=== PATIENT | female | born 1975 | race Caucasian/White ===

== ENCOUNTER 2019-04-29 21:19 | Inpatient (IN) ==
--- NOTE | 2019-04-29 22:06 | Diag Imaging Result Doc PS360 ---
EXAM: CHEST-2 VIEWS - 04/29/2019 HISTORY: cp TECHNIQUE: Chest two views COMPARISON: 12/20/2018 FINDINGS: Heart size is normal. There is some tortuosity of the thoracic aorta. Inspiration is mildly shallow. The lungs appear clear. There is no pleural effusion or pneumothorax identified. IMPRESSION: Some tortuosity of thoracic aorta. Mildly shallow inspiration. No other evidence of acute disease. Electronically signed by Jame Topete 04/29/2019 10:04 PM
[2019-04-29] MEDS ORDERED: DUONEB (A & A) INH ONE (22:10)
[2019-04-29] MEDS ORDERED: ZOFRAN ODT PO ONE (22:16)
[2019-04-29 22:23] LABS: BASO# 0.05 X1000 (0.0-0.2); BASO% 0.5 % (0.0-0.8); EOS# 0.31 X1000 (0.0-0.7); EOS% 2.9 % (0.0-10.0); HEMATOCRIT 43.5 % (37.0-47.0); HEMOGLOBIN 14.2 g/dL (12.0-16.0); IMM GRAN# 0.05 X1000 (0.0-0.04); IMM GRAN% 0.5 % (0.0-0.5); LYMPH# 2.47 X1000 (1.2-3.4); LYMPH% 23.2 % (20.5-51.1); MCH 31.8 PG (27-31); MCHC 32.6 g/dL (33-37); MCV 97.5 FL (81-99); MONO# 0.84 X1000 (0.11-0.59); MONO% 7.9 % (1.7-9.3); MPV 10.6 FL (7.4-10.4); NEUT# 6.94 X1000 (1.4-6.5); PLT 334 X1000 (130-400); RBC 4.46 XMIL (4.2-5.4); RDW 12.6 % (11.5-14.5); WBC 10.66 X1000 (4.8-10.8)
[2019-04-29 22:28] LABS: INR 0.86; PROTIME 12.1 Seconds (11.0-16.0)
[2019-04-29 22:29] LABS: PTT 26.8 Seconds (22.3-41.8)
[2019-04-29 22:47] LABS: AGAP 13; ALBUMIN 4.3 g/dL (3.5-5.0); ALKALINE PHOSPHATASE 191 U/L (32-104); BUN 17 mg/dL (8-22); CALCIUM 9.1 mg/dL (8.8-10.2); CHLORIDE 103 mmol/L (98-107); CK PROFILE 53 U/L (24-173); COSMO 279; CREATININE 0.6 mg/dL (0.5-0.9); ESTIMATED GFR > 60; GLUCOSE 90 mg/dL (70-104); GOT 961 U/L (10-30); GPT 366 U/L (10-36); POTASSIUM 3.8 mmol/L (3.5-5.1); SODIUM 139 mmol/L (136-145); TCO2 23 mmol/L (25-35); TOTAL PROTEIN 7.7 g/dL (6.3-8.3)
[2019-04-29 22:58] LABS: INFLUENZA A NEGATIVE (NEGATIVE); INFLUENZA B NEGATIVE (NEGATIVE)
[2019-04-29] MEDS ORDERED: FENTANYL IV ONE (23:01)
[2019-04-29] MEDS ORDERED: BENADRYL IV ONE (23:01)
[2019-04-30 00:22] LABS: UR AMPHETAMINES QUAL NONE DETECTED (NONE DETECT); UR BARBITUATES QUAL NONE DETECTED (NONE DETECT); UR BENZODIAZEPIN QUAL NONE DETECTED (NONE DETECT); UR CANNABINOIDS QUAL NONE DETECTED (NONE DETECT); UR COCAINE QUAL NONE DETECTED (NONE DETECT); UR METHADONE QUAL NONE DETECTED (NONE DETECT); UR METHAMPHETAMINE QUAL NONE DETECTED (NONE DETECT); UR OPIATES QUAL NONE DETECTED (NONE DETECT); UR OXYCODONE QUAL NONE DETECTED (NONE DETECT); UR PCP QUAL NONE DETECTED (NONE DETECT); UR PROPOXYPHENE QUAL NONE DETECTED (NONE DETECT); UR TCA QUAL NONE DETECTED (NONE DETECT)
--- NOTE | 2019-04-30 02:03 | EKG Report ---
Test Performed on : 04/29/2019 9:56:41 PM Test Reason : cp Blood Pressure : / mmHG Vent. Rate : 080 BPM Atrial Rate : 080 BPM P-R Int : 110 ms QRS Dur : 082 ms QT Int : 376 ms P-R-T Axes : 024 023 047 degrees QTc Int : 433 ms Sinus rhythm. with short HI Otherwise normal ECG No previous ECGs available Unconfirmed Result
[2019-04-30] MEDS ORDERED: FENTANYL IV ONE (03:07)
--- NOTE | 2019-04-30 06:48 | PROVIDER DOCUMENTATION ---
HPI-General Adult - General Chief Complaint: Chest Pain Stated Complaint: CHEST PAINS Time Seen by Provider: 04/29/19 21:59 Source: patient Allergies/Adverse Reactions: Patient Allergies Allergy/AdvReac Type Severity Reaction Status Date / Time hydrocodone [From Lortab] AdvReac NAUSEA/VOMI Verified 04/29/19 21:29 TING ketorolac [From Toradol] AdvReac ITCHING Verified 04/29/19 21:29 morphine AdvReac Unknown Verified 04/29/19 21:29 Home Medications: Home Medication List Medication Instructions Recorded Confirmed Last Taken Type Albuterol Sulfate Inhaler 1 puff INH DIRECTED PRN PRN 12/19/18 04/29/19 02/09/19 History [Ventolin Hfa] Clonazepam 1 tab PO TID 12/19/18 04/29/19 02/09/19 History Fluoxetine HCl [Prozac] 2 tab PO DAILY 12/19/18 04/29/19 02/09/19 History Mirtazapine [Remeron] 1 tab PO HS 12/19/18 04/29/19 02/09/19 History Quetiapine Fumarate [Seroquel] 1 tab PO QHS 12/19/18 04/29/19 02/09/19 History Albuterol [Albuterol Neb] 2.5 mg INH Q4H PRN PRN #20 neb 12/20/18 04/29/19 02/09/19 Rx Cyclobenzaprine [Flexeril] 10 mg PO DAILY #7 tab 02/10/19 04/29/19 Unknown Rx Gabapentin [Neurontin] 300 mg PO TID 02/10/19 04/29/19 02/09/19 History Quetiapine Fumarate [Seroquel] 25 mg PO BID 02/10/19 04/29/19 02/09/19 History Methocarbamol [Robaxin] 750 mg PO TID PRN 04/29/19 04/29/19 Unknown History Docusate Sodium [Colace] 100 mg PO BID #60 cap 05/05/19 Unknown Rx Lidocaine 5% Patch [Lidoderm] 1 ea TOP DAILY #30 patch 05/05/19 Unknown Rx Oxycodone HCl/Acetaminophen 1 ea PO Q6H PRN #25 tab 05/05/19 Unknown Rx [Percocet 7.5-325 mg Tablet] - History of Present Illness -Gen Adult Nature of Presenting Problems: L sided Cp and subcostal pain with SOB starting earlier in the evening. She states associated nausea and lightheadedness. Review of Systems - Adult - REVIEW OF SYSTEMS - ADULT Constitutional: reports: no symptoms reported Eyes: reports: no symptoms reported Ears, Nose, Mouth & Throat: reports: no symptoms reported Cardiovascular: reports: no symptoms reported Respiratory: reports: no symptoms reported Gastrointestinal: reports: no symptoms reported Genitourinary: reports: no symptoms reported Musculoskeletal: reports: no symptoms reported Integumentary: reports: no symptoms reported Neurological: reports: no symptoms reported Psychiatric: reports: no symptoms reported Endocrine: reports: no symptoms reported Hematologic/Lymphatic: reports: no symptoms reported Allergic/Immunologic: reports: no symptoms reported All Other Systems: Reviewed and Negative Past History - Adult - PAST MEDICAL HISTORY-ADULT Review of Records: reports: Old Records Reviewed, Nursing Assessment Review, Medications Reviewed, Social history reviewed & non-contributory. Major Childhood Illnesses: reports: denies history Cardiovascular: reports: denies history Respiratory: reports: asthma Gastrointestinal: reports: denies history Obstetrical/Gynecological: reports: denies history Genitourinary: reports: denies history Musculoskeletal: reports: denies history Neurological: reports: other (UE numbness due to neck pain) Psychiatric: reports: other (psych disorder) Endocrine/Immune: reports: denies history Other Conditions: reports: denies history - FAMILY HISTORY Family History: reviewed, not pertinent Physical Exam-General - PHYSICAL EXAM-ADULT Initial Vital Signs Reviewed: Yes (Hypertensive at triage) - CONSTITUTIONAL General Appearance: appears well, alert, no apparent distress - EYES Eyes: PERRL/EOMI, pink conjunctivae - HEAD, EARS, NOSE, MOUTH & THROAT HENMT: normocephalic/atraumatic, normal ENT inspection, other (hoarse voice). negative: moist mucous membranes (dry) - NECK Neck: full range of motion, supple, normal inspection - RESPIRATORY Respiratory: chest non-tender, lungs clear, normal breath sounds, no pleuratic chest pain, no respiratory distress, no accessory muscle use - CARDIOVASCULAR Cardiovascular: normal peripheral pulses, regular rate, rhythm, no edema, no gallop, no JVD, no murmur - GASTROINTESTINAL (ABDOMEN) Abdominal Exam: normal bowel sounds, soft, tenderness (mild epigastric) - LYMPHATIC Lymphatic: no adenopathy - MUSCULOSKELETAL Back Exam: normal inspection. negative: decreased range of motion Extremity: normal range of motion, non-tender, normal gait, normal inspection, no pedal edema, no calf tenderness - SKIN Integumentary: normal color, normal turgor, warm/dry - NEUROLOGIC Neurologic: risk management analyst II-XII nml as tested, grossly normal, no motor/sensory deficits - PSYCHIATRIC Psych/Mental Status: normal mood/affect, normal thought content, normal thought process, oriented x 3 Progress - PLAN OF CARE/RESULTS Progress/Plan/Lab Results: Vital Signs - 8 hr 04/29/19 23:30 04/30/19 00:00 04/30/19 01:00 Temperature 98.4 F Pulse Rate 84 75 79 Respiratory Rate 20 15 16 Blood Pressure 174/109 154/94 149/81 O2 Sat by Pulse Oximetry 98 96 98 04/30/19 03:00 04/30/19 04:00 04/30/19 05:00 Temperature Pulse Rate 72 81 79 Respiratory Rate 17 17 19 Blood Pressure 159/96 156/101 130/100 O2 Sat by Pulse Oximetry 98 97 98 04/30/19 06:00 Temperature Pulse Rate 74 Respiratory Rate 22 Blood Pressure 123/87 O2 Sat by Pulse Oximetry 99 Bedside Urine ED: Urine Bedside Start: 04/30/19 00:11 Freq: ORDERED Status: Active Protocol: Activity Type Activity Date Activity User E-Sign Co-Sign Detail Recorded Client Recorded Date Recorded By Document 04/30/19 00:11 [id number] 04/30/19 00:12 [id number] 04/30/19 00:11 Point of Care [Bedside Point of Care] -Lot # [id number] - Results Negative -Control Line Visible? Yes Laboratory Results - last 24 hr 04/29/19 04/29/19 04/29/19 22:04 22:04 22:04 WBC 10.66 RBC 4.46 Hgb 14.2 Hct 43.5 MCV 97.5 MCH 31.8 H MCHC 32.6 L RDW Std Deviation 12.6 Plt Count 334 MPV 10.6 H Immature Gran % (Auto) 0.5 Neut % (Auto) 65.0 Lymph % (Auto) 23.2 Tillman % (Auto) 7.9 Eos % (Auto) 2.9 Baso % (Auto) 0.5 Immature Gran # (Auto) 0.05 H Neut # (Auto) 6.94 H Lymph # (Auto) 2.47 Tillman # (Auto) 0.84 H Eos # (Auto) 0.31 Baso # (Auto) 0.05 PT 12.1 INR 0.86 PTT (Actin FS) 26.8 Sodium 139 Potassium 3.8 Chloride 103 Carbon Dioxide 23 L Anion Gap 13 BUN 17 Creatinine 0.6 Estimated GFR/1.73 m2 > 60 BUN/Creatinine Ratio 28 Glucose 90 Calculated Osmolality 279 Calcium 9.1 Total Bilirubin 0.40 AST 961 H ALT 366 H Alkaline Phosphatase 191 H Creatine Kinase 53 Troponin T High Sens Qpf-D-Devhlirlujf Pept Total Protein 7.7 Albumin 4.3 Globulin 3.0 Albumin/Globulin Ratio 1.0 Urine Opiates Screen Ur Oxycodone Screen Urine Methadone Screen U Propoxyphene Qual Ur Barbituates Screen Ur Tricyclics Screen Ur Phencyclidine Scrn Ur Amphetamines Screen U Methamphetamines Scrn U Benzodiazepines Scrn Urine Cocaine Screen U Cannabinoids Screen Influenza A (Rapid) Influenza B (Rapid) Group A Strep Rapid 04/29/19 04/29/19 04/29/19 22:04 22:04 22:35 WBC RBC Hgb Hct MCV MCH MCHC RDW Std Deviation Plt Count MPV Immature Gran % (Auto) Neut % (Auto) Lymph % (Auto) Tillman % (Auto) Eos % (Auto) Baso % (Auto) Immature Gran # (Auto) Neut # (Auto) Lymph # (Auto) Tillman # (Auto) Eos # (Auto) Baso # (Auto) PT INR PTT (Actin FS) Sodium Potassium Chloride Carbon Dioxide Anion Gap BUN Creatinine Estimated GFR/1.73 m2 BUN/Creatinine Ratio Glucose Calculated Osmolality Calcium Total Bilirubin AST ALT Alkaline Phosphatase Creatine Kinase Troponin T High Sens 6 Zpi-F-Hbztohedhrn Pept 94 Total Protein Albumin Globulin Albumin/Globulin Ratio Urine Opiates Screen Ur Oxycodone Screen Urine Methadone Screen U Propoxyphene Qual Ur Barbituates Screen Ur Tricyclics Screen Ur Phencyclidine Scrn Ur Amphetamines Screen U Methamphetamines Scrn U Benzodiazepines Scrn Urine Cocaine Screen U Cannabinoids Screen Influenza A (Rapid) NEGATIVE Influenza B (Rapid) NEGATIVE Group A Strep Rapid 04/29/19 04/29/19 22:35 23:45 WBC RBC Hgb Hct MCV MCH MCHC RDW Std Deviation Plt Count MPV Immature Gran % (Auto) Neut % (Auto) Lymph % (Auto) Tillman % (Auto) Eos % (Auto) Baso % (Auto) Immature Gran # (Auto) Neut # (Auto) Lymph # (Auto) Tillman # (Auto) Eos # (Auto) Baso # (Auto) PT INR PTT (Actin FS) Sodium Potassium Chloride Carbon Dioxide Anion Gap BUN Creatinine Estimated GFR/1.73 m2 BUN/Creatinine Ratio Glucose Calculated Osmolality Calcium Total Bilirubin AST ALT Alkaline Phosphatase Creatine Kinase Troponin T High Sens Pzu-G-Icesxoyytwt Pept Total Protein Albumin Globulin Albumin/Globulin Ratio Urine Opiates Screen NONE DETECTED Ur Oxycodone Screen NONE DETECTED Urine Methadone Screen NONE DETECTED U Propoxyphene Qual NONE DETECTED Ur Barbituates Screen NONE DETECTED Ur Tricyclics Screen NONE DETECTED Ur Phencyclidine Scrn NONE DETECTED Ur Amphetamines Screen NONE DETECTED U Methamphetamines Scrn NONE DETECTED U Benzodiazepines Scrn NONE DETECTED Urine Cocaine Screen NONE DETECTED U Cannabinoids Screen NONE DETECTED Influenza A (Rapid) Influenza B (Rapid) Group A Strep Rapid NEGATIVE Orders Category Date Time Status Admit - [facility] Routine AdmDCTranf 04/30/19 04:46 Active Cardiac Monitoring DIRECTED Care 04/29/19 22:14 Active ED: Urine Bedside ORDERED Care 04/30/19 00:11 Active If abnormal EKG, order: NOW Care 04/29/19 21:32 Completed Saline Loc NOW Care 04/29/19 22:14 Active CHEST-2 VIEWS [RAD] Stat Exams 04/29/19 21:32 Completed CTA [CT ANGIOGRAM THORAX] [CT] Stat Exams 04/29/19 23:48 Taken CBC WITH ELECTRONIC DIFF [HEME] Stat Lab 04/29/19 22:04 Completed CK PROFILE [SP CHEM] Stat Lab 04/29/19 22:04 Completed COMPREHENSIVE METABOLIC PANEL [CHEM] Stat Lab 04/29/19 22:04 Completed Flu [INFLUENZA SCREEN PL] Stat Lab 04/29/19 22:35 Completed PRO B-NATRIURETIC PEPTIDE Stat Lab 04/29/19 22:04 Completed PROTIME WITH INR [COAG] Stat Lab 04/29/19 22:04 Completed PTT [COAG] Stat Lab 04/29/19 22:04 Completed TROPONIN T HIGH SENSITIVITY Stat Lab 04/29/19 22:04 [address] DRUG SCREEN [address] Stat Lab 04/29/19 23:45 Completed strep [DIRECT STREP PL] Stat Lab 04/29/19 22:35 Completed Albuterol 2.5MG/Ipratrop 0.5MG [Duoneb (A & A)] Med 04/29/19 22:10 Discontinued 3 ml INH NOW ONE Diphenhydramine [Benadryl] Med 04/29/19 23:01 Discontinued 25 mg IV NOW ONE Fentanyl Med 04/29/19 23:01 Discontinued 100 microgm IV NOW ONE Fentanyl Med 04/30/19 03:07 Discontinued 50 microgm IV NOW ONE Ondansetron Odt [Zofran Odt] Med 04/29/19 22:16 Discontinued 4 mg PO NOW ONE Aerosol Treatments Routine Oth 04/29/19 22:10 Completed Aerosol Treatments Stat Oth 04/29/19 22:10 Completed EKG [EKG] Stat Ther 04/29/19 21:32 Draft Transfer/Admit Order [TRANSFER] Routine Transfer 04/30/19 04:00 Completed Clinically stable while here. Considerations include but not limited to PE, AMI, ACS, malignancy, aortic aneurysm, dissection, PNA. CTA shows multiple RML and post mediastinal masses concerning for malignancy. She also has L pleural thickening and a L splenic mass. She had recurrent pain which improved with Fentanyl. Her xaminases markedly elevated, possible secondary to chronic etoh. Accepted for xfer by Dr Benton at . Result Diagrams: 05/05/19 07:45 05/05/19 07:45 - REASSESSMENT Reassessment #1 Time Reassessed: 09:08 Status: unchanged (I was asked by the hospitalist to see this patient who may want to be transferred to [facility] for further eval/treatment. However, after review of the chart, when I went to bedside, patient states she has changed her mind and will be admitted her instead of being transferred to [place].) - CONSULTS/PCP/HOSPITALIST Notification #1 *Consult/PCP/Hospitalist*: Zara paged at 0900 Consult Disposition: other (hold for transfer to [facility]) Departure - Departure Date of Disposition Decision: 04/30/19 Time of Disposition Decision: 09:10 DIAGNOSIS: Lung mass Chest pain Qualifiers: Chest pain type: unspecified Qualified Code(s): R07.9 - Chest pain, unspecified Disposition: ADMITTED INPATIENT 09 Certified Medical Emergency: Emergent Condition: Fair - Critical Care Note This patient required my direct & personal management of CC.: Yes Total Time (mins): 40 Critical Care Statement: This patient required my direct personal management to treat or rule out processes, the absence of which, could potentiallly result in sudden, clinically significant life or limb threatening deterioration. Attestation - Physician/ LUIS ALFREDO Attestation Patient care was provided by Advanced Practice Provider:: No The physician spent face to face time with patient:: Yes Advanced Practice Provider documentation review:: Supervising physician onsite and consulted in the evaluation and care of this patient. The physician did have a face to face encounter with the patient.
--- NOTE | 2019-04-30 07:29 | Diag Imaging Result Doc PS360 ---
EXAM: CT ANGIOGRAM THORAX - 04/29/2019 HISTORY: cp,sob. abnormal appearance of aorta on cxr TECHNIQUE: CT angiogram thorax with intravenous contrast. Axial, coronal and sagittal, and 3-D MIP images are obtained. COMPARISON: 04/29/2019 chest radiographs FINDINGS: The ascending aorta is borderline ectatic at 3.5 cm. There is no evidence of aortic dissection. There is a 1 x 1.5 cm density with somewhat irregular margins at the posterior right middle lobe adjacent to the major fissure. Considerations include primary or secondary malignancy and atypical infectious/inflammatory process. There is unusual enhancing pleural thickening along the posterior lower lobe on the left. This varies in thickness up to 1.2 cm. There is some nodular enhancement at the inferior aspect of the thickening, as well as a 1 cm calcification. There is no gross rib invasion or destruction. There is a 0.8 x 0.5 cm enhancing pleural nodules at the anterior lateral left upper lobe. There is a 2.5 x 3 cm low-density mass in the mediastinum between the distal trachea and anterior margin of the spine. This displaces the esophagus to the right. This measures approximately 40 Hounsfield units in density which suggest that may represent a low-density solid mass or adenopathy, rather than a cyst. Additional small mediastinal lymph nodes. There is no consolidation, low-density pleural effusion, or pneumothorax identified. There is a 3.7 x 4.1 cm low-density lesion, which is possibly cystic, in the spleen. Included sections of upper abdomen show no other discrete lesion. IMPRESSION: Borderline ectasia of ascending aorta at 3.5 cm. No evidence of aortic dissection. 1 x 1.5 cm density with somewhat irregular margins at posterior right middle lobe adjacent to the major fissure. Considerations include malignancy and atypical infectious/inflammatory process. Unusual enhancing pleural thickening at posterior left lower lobe. Small enhancing pleural nodule at anterolateral left upper lobe. Malignant pleural thickening cannot be excluded. 2.5 x 3 cm low-density mass or adenopathy at mediastinum posterior to the distal trachea. This displaces the esophagus to the right. The on-call radiologist provided preliminary results at 12:55 AM on 04/30/2019. Electronically signed by Jame Topete 04/30/2019 7:27 AM
[2019-04-30] MEDS ORDERED: VENTOLIN HFA INH PRN (08:57)
[2019-04-30] MEDS ORDERED: ALBUTEROL NEB INH PRN ×2 (08:57→12:05)
[2019-04-30] MEDS ORDERED: DILAUDID IV PRN (08:57)
[2019-04-30] MEDS ORDERED: ROBAXIN PO PRN ×2 (08:57→12:19)
[2019-04-30] MEDS ORDERED: ZOFRAN IV PRN ×2 (08:57→12:21)
[2019-04-30] MEDS ORDERED: FLEXERIL PO SCH (09:00)
[2019-04-30] MEDS ORDERED: NEURONTIN PO SCH (09:00)
[2019-04-30] MEDS ORDERED: PROZAC PO SCH (11:00)
[2019-04-30] MEDS ORDERED: KLONOPIN PO SCH ×2 (13:00→15:00)
[2019-04-30] MEDS ORDERED: SEROQUEL PO SCH ×2 (14:00→21:00)
[2019-04-30] MEDS: DILAUDID IV PRN ×2 (15:01→22:54)
--- NOTE | 2019-04-30 15:17 | HISTORY AND PHYSICAL ---
PRIMARY CARE PHYSICIAN: Listed as none. CHIEF COMPLAINT: Left-sided pain under her left breast that began yesterday. She also notes some nausea, lightheadedness, and shortness of breath. HISTORY OF PRESENTING ILLNESS: This is a 43-year-old female who presents to [facility] ER with complaints of left side under her left breast pain with nausea, shortness of breath and lightheadedness that began yesterday and progressively worsened. Workup in the emergency room showed a chest x-ray with some tortuosity of the thoracic aorta, mildly shallow inspiration but no other evidence of acute disease. CT of the chest and thorax showed an impression of a borderline ectasia of ascending aorta at 3.5 cm. No evidence of aortic dissection. A 1 x 1.5 cm density of somewhat irregular margins at the right posterior middle lobe adjacent to the major fissure. Considerations include malignancy and an atypical infectious inflammatory process. Unusual enhancing pleural thickening at the posterior left lower lobe, a small enhancing pleural nodule at the anterior lateral left upper lobe. Malignant pleural thickening cannot be excluded. A 2.5 x 3 cm low-density mass or adenopathy at the mediastinum posterior to the distal trachea that displaces the esophagus to the right so she is being admitted to the [facility] for further evaluation and treatment. PAST MEDICAL HISTORY: Asthma, hypertension, anxiety, depression. PAST SURGICAL HISTORY: Thoracic surgery and neck surgery. FAMILY HISTORY: Reviewed and noncontributory. SOCIAL HISTORY: She currently lives alone. Smokes 1 pack of cigarettes a day and has done so for the past 30+ years and used to drink alcohol heavily but has been quit for about 2 years and only drinks occasionally now and uses marijuana occasionally. ALLERGIES: Hydrocodone, Ketoralac and morphine. HOME MEDICATIONS: She takes albuterol nebulizer q.4 hours p.r.n., Ventolin inhaler p.r.n., clonazepam 2 mg p.o. t.i.d., Flexeril 10 mg p.o. daily, fluoxetine 40 mg 2 tablets p.o. daily, gabapentin 300 mg p.o. t.i.d., methocarbamol 750 mg p.o. t.i.d., mirtazapine 45 mg p.o. at bedtime, quetiapine 25 mg p.o. b.i.d., Seroquel 200 mg p.o. at bedtime. LABORATORY DATA: Showed a white blood cell count of 10.66, hemoglobin 14.2, hematocrit 43.5, platelets 334,000. PT and INR of 12.1 and 0.86. Sodium 139, potassium 3.8, chloride 103, CO2 23, BUN of 17, creatinine 0.6, glucose 90, AST of 961, ALT 366, alkaline phosphatase at 191. Cardiac enzyme was negative proBNP of 94. Urine drug screen was negative. Influenza A and B were negative. Group A strep was negative. Chest x-ray showed some tortuosity of the thoracic aorta, but mild shallow inspiration and no evidence otherwise of acute disease. CT of the chest and thorax showed an impression of a borderline ectasia of ascending aorta at 3.5 cm. No evidence of an aortic dissection. A 1 x 1-1/2 cm density of somewhat irregular margins at the posterior right middle lobe adjacent to the major fissure. Considerations include malignancy and atypical infection/inflammatory process and unusual enhancing pleural thickening at the posterior left lower lobe, some enhancing pleural nodule at the anterior lateral left upper lobe, malignant pleural thickening cannot be excluded. 2.5 x 3 cm low-density mass or adenopathy at the mediastinum posterior to the distal trachea. This displaces the esophagus to the right. There is also a 3.7 x 4.1 cm low-density lesion which is possibly cystic in the spleen included section of the upper abdomen show no other discrete lesions. EKG showed sinus rhythm with short VT at 80. REVIEW OF SYSTEMS: She denied any fever, chills, blurred vision, dizziness. She has had left- sided under her left breast pain, shortness of breath, nausea, lightheadedness. Denied any abdominal pain, constipation, diarrhea, burning or hurting with urination. PHYSICAL EXAMINATION: On arrival had a temperature of 98.3 degrees, pulse 86, respirations 18, blood pressure currently 143/85. GENERAL: This is a 43-year-old female lying in the bed and answers questions appropriately. HEENT: Normocephalic, atraumatic. Normal ENT inspection. Oropharynx and nares are clear. EYES: Pupils are equal, round, and reactive to light and accommodation. Extraocular movements are intact. NECK: Normal inspection, normal range of motion. LUNGS: Clear to auscultation bilaterally with equal lung expansion. Chest wall movement. HEART: Regular rate and rhythm. No murmurs, rubs, or gallops. ABDOMEN: Soft. There is some tenderness to the left upper quadrant epigastric area to palpation and underneath the left breast. She guards underneath that left breast with her hand. Bowel sounds are present x4 quadrants. MUSCULOSKELETAL: She had 5/5 strength x4 extremities. NEUROLOGICAL: The cranial nerves 2-12 appear grossly intact. ASSESSMENT: 1. Left upper quadrant epigastric abdominal pain that radiates underneath the left breast. Lung mass, splenic mass and mediastinal mass per CT. 2. Elevated liver function tests. 3. Hypertension. 4. Tobacco abuse. PLAN: She will be admitted to the [facility]. Placed on telemetry, regular diet. We will consult Pulmonology. We will consult Oncology. Continue her home medications. Give her some Dilaudid 1 mg IV q.3 hours p.r.n. for pain. For her nausea we will give Zofran 4 mg IV q.4 hours p.r.n. We will recheck a CBC, BMP in further orders after seen by attending and by exchange underwriting consultant. Dictated by FATUMA Escalona for Jony Zuñiga MD cc: FATUMA Escalona MD Lloyd James, MD MTDD
[2019-04-30] MEDS: NEURONTIN PO SCH ×2 (16:05→22:54)
[2019-04-30] MEDS: SEROQUEL PO SCH ×2 (16:05→22:54)
[2019-04-30] MEDS ORDERED: HYDROCORTISONE 1% CREAM TOP PRN (17:47)
[2019-04-30] MEDS: KLONOPIN PO SCH ×2 (17:58→22:53)
--- NOTE | 2019-04-30 18:03 | Diag Imaging Result Doc PS360 ---
EXAM: CT ABD/PELVIS W/PO AND IV CON INDICATION: lft abnormalities TECHNIQUE: This exam was performed using automated exposure control, adjustment of mA or kV according to patient size, and/or use of iterative reconstruction technique. COMPARISON: None. FINDINGS: There is subsegmental atelectasis at both lung bases. The gallbladder is unremarkable. The common bile duct appears mildly prominent measuring up to 8 mm in diameter. There is a 4 cm splenic cyst. The spleen is unremarkable, otherwise. The liver is grossly unremarkable with no discrete hepatic mass identified. Pancreas, adrenal glands, kidneys, and urinary bladder are grossly unremarkable. There is a 3 cm right ovarian cyst. The reproductive tract is grossly unremarkable as imaged, otherwise. The appendix is not clearly identified but there are no secondary signs of appendicitis. No focal bowel wall thickening or bowel obstruction is identified. The remainder of the GI tract is unremarkable. No focal inflammatory changes, free abdominal gas, or free fluid is appreciated. IMPRESSION: 1.Mildly prominent common bile duct. 2.Other incidental/nonacute findings detailed above. Electronically signed by Rcih Rivera 04/30/2019 6:00 PM
--- NOTE | 2019-04-30 19:29 | PROGRESS NOTE ---
DATE: 04/30/2019 INTERVAL HISTORY: She was transferred from [facility] for evaluation of lung nodules. SUBJECTIVE: Ms. Mahmood is complaining of left-sided back and under the breast pain. She denies new complaints. She also has been feeling a little short of breath and has been having cough which has been nonproductive. She previously had history of esophageal cyst for which she was undergoing surgery, and unfortunately had developed rupture of the thoracic duct and was in the hospital for almost 6 months. VITAL SIGNS: Temperature of 98 degrees, pulse of 68, respiratory rate 15, blood pressure 147/78, saturating 98% on room air. PHYSICAL EXAMINATION: General: Not in acute distress. Oral cavity: Moist. Lungs: Air entry bilaterally equal. No wheeze, rhonchi, or crackles. Cardiovascular: S1, S2 normal. No murmur or gallop. Abdomen: Soft, nontender. No hepatosplenomegaly. Extremities: No lower extremity edema. Chest: She does have localized chest wall tenderness around the left chest, left infrascapular region. There is also a previous scar of surgery on left infrascapular region. She also has reproducible pain over left chest wall. LABS: WBC of 10,000, hemoglobin 14.2, platelet 334,000. Normal electrolytes. She does have elevated AST, ALT, and alkaline phosphatase. No positive microbiological data so far. Flu test was negative. Abdomen/pelvis CT was performed, the result of which is currently pending. ASSESSMENT: 1. Left-sided chest pain under left breast, with CT scan suggestive of pleural thickening. 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 Malignancy is also a possibility. 2. Bilateral lung nodules, which could be secondary to atypical pneumonia versus malignancy. Start patient on intravenous ceftriaxone, azithromycin. Follow up urine antigens, sputum culture. 3. Low density mass or adenopathy at the mediastinum posterior to distal trachea, displacing esophagus, unclear if adenopathy versus mass. She previously, however, did have cyst in the esophagus. The history around this is not clear. 4. Left sided lower ribcage pain under left breast, though she mentions is to be acute. It is easily reproducible costochondritis due to viral infection is certainly a possibility. 5. History of anxiety, depression and chronic pain disorder. 6. Concerns related to home safety. PLAN: 1. Start patient on intravenous ceftriaxone and azithromycin. Follow up urine antigens and sputum culture. 2. Follow-up CT scan of the abdomen and pelvis to rule out any malignancy. Oncology team on board. 3. Resume all of her home medication for anxiety, depression, and chronic pain. 4. I will start her on topical hydrocortisone for rash, which could be related to insect infestation versus doxycycline induced drug rash. 5. Plan of care discussed with the patient and her questions have been answered. cc: Wilberto Nichols MD MTDD
[2019-04-30] MEDS: ZITHROMAX PO SCH (19:33)
[2019-04-30] MEDS: ROCEPHIN 1 GM in NS 50 ML IV SCH (19:33)
--- NOTE | 2019-04-30 19:56 | HISTORY AND PHYSICAL ---
ADDENDUM: Patient seen and examined by myself. Full note dictated and discussed with nurse practitioner. Patient presented to the hospital with chest pain. Unfortunately, her CT is quite problematic. She does have multiple right middle lobe mediastinal masses. They are very concerning for malignancy. We are going to transfer her to [facility] for further evaluation and treatment. cc: MD Wilberto Parmar MD
[2019-04-30] MEDS ORDERED: REMERON PO SCH ×3 (21:00)
[2019-05-01] MEDS: NEURONTIN PO SCH ×2 (06:23→08:58)
[2019-05-01] MEDS: SEROQUEL PO SCH ×2 (06:23→21:45)
[2019-05-01 08:40] LABS: BASO# 0.05 X1000 (0.0-0.2); BASO% 1.2 % (0.0-0.8); EOS# 0.34 X1000 (0.0-0.7); EOS% 8.2 % (0.0-10.0); HEMATOCRIT 39.7 % (37.0-47.0); HEMOGLOBIN 12.8 g/dL (12.0-16.0); LYMPH# 1.52 X1000 (1.2-3.4); LYMPH% 36.6 % (20.5-51.1); MCH 32.7 PG (27-31); MCHC 32.2 g/dL (33-37); MCV 101.5 FL (81-99); MPV 10.7 FL (7.4-10.4); NEUT# 1.74 X1000 (1.4-6.5); PLT 218 X1000 (130-400); RBC 3.91 XMIL (4.2-5.4); WBC 4.15 X1000 (4.8-10.8)
[2019-05-01 08:46] LABS: AGAP 8; ALBUMIN 3.3 g/dL (3.5-5.0); ALKALINE PHOSPHATASE 202 U/L (32-104); BUN 15 mg/dL (8-22); CALCIUM 8.8 mg/dL (8.8-10.2); CHLORIDE 103 mmol/L (98-107); COSMO 276; CREATININE 0.7 mg/dL (0.5-0.9); ESTIMATED GFR > 60; GLUCOSE 95 mg/dL (70-104); GOT 291 U/L (10-30); GPT 470 U/L (10-36); SODIUM 138 mmol/L (136-145); TCO2 27 mmol/L (25-35); TOTAL BILIRUBIN 0.18 mg/dL (0.20-1.00); TOTAL PROTEIN 6.5 g/dL (6.3-8.3)
[2019-05-01] MEDS: KLONOPIN PO SCH ×3 (08:53→21:45)
[2019-05-01] MEDS: PROZAC PO SCH (08:59)
[2019-05-01] MEDS ORDERED: FLEXERIL PO SCH (09:00)
[2019-05-01] MEDS ORDERED: NEURONTIN PO PRN (13:04)
--- NOTE | 2019-05-01 14:31 | PROGRESS NOTE ---
DATE: 05/01/2019 RECENT HISTORY: No acute overnight events. SUBJECTIVE: Ms. Mahmood is too drowsy to engage in clinical encounter meaningfully and I talked with her about decreasing some of her psychiatric medications. Also requesting records from her outside physician. I checked [place] prescription drug monitoring program and patient has been receiving clonazepam 2 mg t.i.d. SUBJECTIVE: She denies any chest pain or shortness of breath. She states she had a good night's sleep yesterday. However, she again lapses back into sleep. VITALS: Temperature 98.3 degrees, pulse 88, respiratory 16, blood pressure 136/85, saturating 97% on room air. PHYSICAL EXAMINATION: Oral cavity is moist. Air entry bilaterally equal. No wheeze, rhonchi, or crackles.Cardiovascular: S1, S2 normal. No murmur or gallop. Abdomen: Soft, nontender. No hepatosplenomegaly. No lower extremity edema. She does not wince to pressure on the chest wall today. There was previous scar of surgery on the left infrascapular region. She has a rash affecting her legs and arm, which looks like insect bite. LABS: Suggestive of WBC of 4000, hemoglobin 12.8, platelet 218,000, BUN 15, creatinine 0.7. AST decreased to 291, ALT increased to 470. Alkaline phosphatase has been 202. We do not have previous labs for comparison. Microbiology, throat culture is pending. Yesterday, abdomen and pelvis CT had mildly prominent common bile duct, other nonacute findings as above. Other nonacute findings were detailed, but they were not significant. She did have a splenic cyst. Electrocardiogram performed had sinus rhythm with short FL. ASSESSMENT AND PLAN: 1. Left-sided chest pain under left breast seems to be improving. CT scan of chest had pleural thickening and she did have multiple chest tubes in the year 2016 supposedly due to chylothorax, which would explain her pleural thickness. Malignancy is also a possibility. Pulmonology team has been consulted. Appreciate recommendations. 2. Bilateral lung nodules, secondary to atypical pneumonia versus malignancy. Continue intravenous ceftriaxone and azithromycin. Follow up urine antigens. The patient has not made any sputum to get sputum culture. 3. Low-density mass or adenopathy at the mediastinum posterior to distal trachea displacing esophagus. Unclear if this is adenopathy versus mass. Previously she did have a cyst in the esophagus, the surgery of which led to injury to thoracic duct and patient had a prolonged course at [facility] in 2016 for it requiring multiple chest tube due to chylothorax. 4. History of anxiety, depression, and bipolar mood disorder, along with chronic pain disorder. She has been significantly sedated at the time of my encounter, so I will make changes in her pain medication and psychiatric medication regimen. Continue quetiapine 200 mg at nighttime, clonazepam 200 mg t.i.d. I could confirm the clonazepam on [place] prescription drug monitoring program. Continue Prozac 80 mg daily and make gabapentin p.r.n. I discontinued her daytime Seroquel. I discontinued her multiple muscle relaxants. 5. Concerns related to home safety. Superintendent Local has been consulted. DISPOSITION: Monitor patient on medical floor. Plan of care discussed with the patient and her questions have been answered. I encouraged her to quit smoking. cc: Wilberto Nichols MD MTDD
--- NOTE | 2019-05-01 15:20 | Diag Imaging Result Doc PS360 ---
EXAM: US GB < RUQ (LIMITED) INDICATION: Evaluate for CBC obstruction./ Gall stones. COMPARISON: None. FINDINGS: The gallbladder is packed full of densely shadowing stones. The gallbladder wall is somewhat thickened measuring 4.5 mm in thickness. No pericholecystic fluid is identified. The common bile duct is near the upper limit of normal for diameter measuring 6 mm. Sonographic Nelson's sign was reported to be negative. The liver is grossly unremarkable. Portal venous flow is hepatopetal. The pancreatic tail is obscured by bowel gas. The visualized portion of the pancreas is unremarkable. The aorta and IVC are grossly unremarkable. The right kidney is grossly unremarkable. IMPRESSION: 1.Gallbladder lumen packed full of stones and mild gallbladder wall thickening but no pericholecystic fluid. Please correlate clinically. 2.Common bile duct diameter near the upper limit of normal. Electronically signed by Rich Rivera 05/01/2019 3:18 PM
[2019-05-01] MEDS: LIDODERM TOP SCH (16:05)
--- NOTE | 2019-05-01 16:23 | PROVIDER PROGRESS NOTE ---
Progress Note Patient has been seen and examined. A full dictation to follow.
[2019-05-01] MEDS: ZITHROMAX PO SCH (17:27)
[2019-05-01] MEDS: ROCEPHIN 1 GM in NS 50 ML IV SCH (17:27)
--- NOTE | 2019-05-01 19:39 | PULMONOLOGY CONSULTATION ---
DATE: 05/01/2019 REQUESTING PROVIDER: FATUMA Escalona. REASON FOR CONSULTATION: Lung mediastinal mass. HISTORY OF PRESENT ILLNESS: This is a 43-year-old female with a medical history of asthma, hypertension, anxiety, depression, and chronic pain disorder. She presented to the [facility] yesterday with acute onset of left-sided chest pain on the left breast. Initial workup in the ER revealed lung mass, splenic mass, and mediastinal mass with elevated liver function tests. She was transferred to our facility for further evaluation and management. The patient currently is lying in bed with no acute distress noted. She still complained of left-sided pain chest pain on the left breast which has been improved slightly and worsens as she moves along, but the pain is not affected by deep breathing or cough. She did have some dry cough going on over one month. She reports no fever, chill, bowel habit change, urination discomfort, appetite change, pedal edema, or palpitation. She reports a 5-pound weight loss in the last several days with normal appetite. PAST MEDICAL HISTORY: 1. Asthma. The patient reported that whenever she smells perfume she will start to have asthma attack, but she cannot tell me when her last asthma attack was. 2. Hypertension. 3. Anxiety. 4. Depression. 5. Chronic pain disorder. 6. Ongoing tobacco use. PAST SURGICAL HISTORY: Thoracic surgery and neck surgery. FAMILY HISTORY: Unknown. SOCIAL HISTORY: The patient lives alone. She has been smoking 1 pack of cigarettes a day for over 30 years. She used to drink heavily, but has quit about 2 years ago. Currently, she drinks socially. She inhaled marijuana once a couple weeks for over 20 years. ALLERGIES: Hydrocodone, Ketoralac, and morphine. REVIEW OF SYSTEMS: A 10-point review of systems was conducted and the pertinent is listed within the HPI, otherwise noncontributory. PHYSICAL EXAMINATION: Vital Signs: Temperature 98.3, blood pressure 136/85, pulse 88, respiratory rate 16, oxygen saturation 97% on room air. General: Lying in bed with no acute distress noted. The patient's friend at the bedside. HEENT: Normocephalic. Trachea midline. Mucosa pink and moist. Respiratory: Even and unlabored. Symmetrical excursion. Clear to auscultation bilaterally. Cardiovascular: Regular rate and rhythm with S1 and S2 appreciated. Extremities: No pedal edema. No cyanosis. No clubbing. Dorsalis pedis 2+ bilaterally. Neurologic: Alert and oriented x3. Speech fluent. Follows commands. LABORATORY DATA: White blood cell 4.15, hemoglobin 12.8, hematocrit 39.7, platelet 218,000. Sodium 138, potassium 4.0, chloride 103, carbon dioxide 27, BUN 15, creatinine 0.7, glucose 95, AST 291, ALT 470, alkaline phosphatase 202. IMAGING DATA: CT angiogram of thorax on 04/29/2019 revealed borderline ectasia of the ascending aorta at 3.5 cm. No evidence of aortic dissection. A 1 x 1.5 cm density with somewhat irregular margins at the posterior right middle lobe adjacent to the major fissure. Unusual enhancing pleural thickening at the posterior left lower lobe. Small enhancing pleural nodule at anterior lateral left upper lobe. A 2.5 x 3 cm low-density mass or adenopathy at the mediastinum posterior to the distal trachea. ASSESSMENT: This is a 43-year-old female with a medical history of asthma, hypertension, anxiety, depression, chronic pain disorder, and ongoing tobacco use. She has been admitted to our facility since yesterday with left-sided chest pain on the left breast, lung mass, splenic mass, mediastinal mass, and elevated liver function tests. 1. Right middle lobe irregular density 1 x 1.5 cm. 2. Unusual enhancing pleural thickening along posterior left lower lobe 1.2 cm with some nodule enhancement. 3. Left upper lobe pleural nodules 0.8 x 0.5 cm. 4. Low-density mass 2.5 x 3 cm in the mediastinum. 5. Left-sided chest pain on the left breast. 6. Liver functional test elevation. PLAN: 1. Continue antibiotics per Dr. Nichols. Continue breathing treatments. 2. To recommend outpatient PET scan after antibiotic therapy within 1 to 2 months. 3. Follow up with CMP, sputum culture, procalcitonin, Legionella Ag urine, strep neuro Ag urine, and hepatitis profile. 4. Further recommendations pending hospital course Thank you for the courtesy of this consult. Dictated by FATUMA Saucedo for Chari Mccrary MD cc: FATUMA Saucedo MD Siddharth Patel, MD MTDD
[2019-05-01] MEDS: PERCOCET-5 PO PRN (21:51)
[2019-05-02 08:59] LABS: AGAP 8; ALKALINE PHOSPHATASE 262 U/L (32-104); BUN 17 mg/dL (8-22); CALCIUM 8.8 mg/dL (8.8-10.2); CHLORIDE 105 mmol/L (98-107); COSMO 280; CREATININE 0.7 mg/dL (0.5-0.9); ESTIMATED GFR > 60; GLUCOSE 89 mg/dL (70-104); GOT 598 U/L (10-30); GPT 627 U/L (10-36); POTASSIUM 4.1 mmol/L (3.5-5.1); SODIUM 140 mmol/L (136-145); TCO2 27 mmol/L (25-35); TOTAL BILIRUBIN 0.18 mg/dL (0.20-1.00)
[2019-05-02] MEDS: PROZAC PO SCH (08:59)
[2019-05-02] MEDS: PERCOCET-5 PO PRN ×3 (08:59→21:15)
[2019-05-02] MEDS: KLONOPIN PO SCH ×3 (08:59→20:33)
[2019-05-02] MEDS: LIDODERM TOP SCH (09:01)
[2019-05-02] MEDS ORDERED: SODIUM CHLORIDE 0.9% INJ SCH (12:45)
--- NOTE | 2019-05-02 13:37 | PROGRESS NOTE ---
DATE: 05/02/2019 INTERVAL HISTORY: The patient had reportedly misbehaved with the oncologist and she has been not very cooperative with the nursing care. She has been rude with the nursing care and she was requesting intravenous Dilaudid. I evaluated the patient at bedside. One of the patient's friends is currently at bedside. The patient, as soon as I entered, started complaining of epigastric and left upper quadrant abdominal pain. Sometimes, she states it is running across the abdomen. She denies any chest pain as such. She starts crying during my encounter. She states that she only sees a psychiatrist and does not have a regular doctor. I informed her about abnormal liver function test and further investigation and plan. VITALS: Temperature of 98.2 degrees, pulse 67, respiratory rate 16, blood pressure 118/79, saturating 97% on room air. PHYSICAL EXAMINATION: Initially, she appeared in mild to moderate distress because of pain. Oral cavity is moist. Lungs: Air entry bilaterally equal. No wheeze, rhonchi, or crackles. Cardiovascular: S1, S2 normal. No murmur, rub, or gallop. Abdomen: Soft. There is epigastric and left upper quadrant tenderness. I could not elicit Nelson's sign properly but it seemed to be negative. Active bowel sounds. No lower extremity edema. She is alert and oriented x3. She has a scar of previous thoracic surgery on the left infrascapular region. She has significant tenderness around the scar. She is alert and oriented x3. LABS: Suggestive of WBC of 4000, hemoglobin 12.8, platelets 218,000. Potassium 4.1, BUN 17, creatinine 0.7, GFR more than 60. She continues to have abnormal liver function test with AST of 598, ALT of 627, alkaline phosphatase of 262. Ultrasound imaging yesterday had suggested gallbladder lumen packed full of stones and mild gallbladder wall thickening without any pericholecystic fluid. Common bile duct diameter was at upper limit of normal. ASSESSMENT AND PLAN: 1. Epigastric abdominal and left upper quadrant abdominal, as well as left-sided chest wall pain. Continue oral Percocet, increase dose of gabapentin, continue lidocaine patch. The differential of this pain could be acute on chronic chest wall pain related to previous thoracic surgery that she has had. She also had a herniated disk in the past. It seems to be coming more from the chest wall rather than deeper structure considering tenderness to superficial palpation and I discussed with her about avoiding intravenous opioids. 2. Suspected acute cholecystitis based on abnormal liver function tests including elevated alkaline phosphatase, mild dilatation of common bile duct, and gallstones with mild thickening of the gallbladder wall. Her epigastric abdominal pain could be related to it. The patient also complains of nausea and because of that, poor oral intake. I will continue intravenous ceftriaxone. Add intravenous Flagyl and consult the general surgical team for further recommendations. 3. History of anxiety, depression, posttraumatic stress disorder, and chronic regional pain syndrome. I will continue patient on home medications of fluoxetine, clonazepam, quetiapine, and gabapentin. I will request more records from [place] from her psychiatrist's office. 4. Bilateral lung nodules, nodule in the mediastinum displacing the esophagus, left-sided pleural thickening. Differential includes atypical pneumonia versus malignancy. She has had multiple chest tube interventions, left, for chylothorax and a surgery for esophageal cyst removal at [place] in 2016 with complications. Oncology team on board. The plan is to treat her pneumonia with intravenous antibiotics and possibly get a repeat CT scan 2 to 3 weeks later outpatient to decide about further investigation. 5. Concerns for home safety. convention services director has been consulted. The patient used to live in [place] and has recently moved to this region just 4 days ago. 6. Disposition. I will continue to monitor patient inside the hospital. I will also start her on intravenous fluid resuscitation. The patient's friend is at bedside. Initially, during encounter, patient was agitated and was angry for the fact that no one had seen her. I explained to her that I did have a clinical encounter with her yesterday and the fact that she was on multiple medications, she was extremely drowsy. The patient's friend at bedside also attested to the fact that the patient had forgotten that her friend had seen her yesterday as well. I discussed with her about risks of respiratory depression associated with intravenous opioid use on top of already being on multiple sedative hypnotic medications. I offered her to increase the dose of gabapentin for her neuropathic pain. She did not seem interested. I also offered her a lidocaine patch, she has been refusing. I explained to the patient that we all were trying to help her but we had to assess the risk versus benefit before giving her intravenous opioids. At that point, the risks were higher than the benefits considering her extreme drowsy state yesterday. Plan of care discussed with the nursing team who was also present at bedside. Her questions have been answered. cc: Wilberto Nichols MD
--- NOTE | 2019-05-02 15:00 | HEMO/ONC CONSULTATION ---
DATE: 05/02/2019 REQUESTING PHYSICIAN: Dr. Nichols. CHIEF COMPLAINT/HISTORY OF PRESENT ILLNESS: The patient is a 43-year-old female with depression and anxiety who follows with her psychiatrist. The patient does not have a primary medical doctor. She recently presented to [facility] with left-sided chest pain. The patient underwent evaluation in the ER and a CT scan was performed. This led to transferring her to [facility]. She has a prior history of undergoing thoracic surgery and surgery for an esophageal cyst in [place] after that. She had a thorax requiring multiple chest tube drainage procedures. This was several years ago. No malignancy was noted at that time. She reports a dry cough but denies any infectious symptoms, hemoptysis, significant anorexia, or weight loss. PAST MEDICAL HISTORY: Hypertension, anxiety, depression, asthma. PAST SURGICAL HISTORY: Thoracic surgery and neck surgery. FAMILY HISTORY: Noncontributory. No family history of lung cancer. SOCIAL HISTORY: Patient lives alone. She smokes 1 pack per day for the last 30 years. She reports her quitting alcohol about 2 years ago. She uses marijuana regularly. ALLERGIES: Hydrocodone, Ketoralac, and morphine. REVIEW OF SYSTEMS: As dictated above. All other review of systems are negative. PHYSICAL EXAMINATION: General: Patient is a thinly-built female, in no acute distress. Afebrile. Vital Signs: Stable. Constitutional: Patient is in no acute distress. HEENT: Eyes: EOMI. PERRLA. Anicteric. Mucous membranes appear moist. Cardiac: Regular rate and rhythm. Normal S1, S2. Chest: Clear to auscultation. Abdomen: Soft, nontender, without hepatosplenomegaly or masses. Extremities: No cyanosis, clubbing, or edema. Neurological: Alert and oriented x3. No focal motor deficits. LABORATORY DATA: White count 4.1, hemoglobin 12.8, platelets 218,000. BUN 8, creatinine 0.7. Bilirubin 0.1, AST 598, ALT 627, alkaline phosphatase 262. Drug screen negative. CEA 2.5. Flu and strep negative. RADIOLOGY: CT chest angiogram: A 1.5 cm density with irregular margins in the right middle lobe adjacent to the major fissure, infectious versus malignant. Pleural thickening in the left posterior lower lobe and upper lobe. A 3 cm low-density mass in the mediastinum posterior to the distal trachea, displacing the esophagus to the right. CT of the abdomen and pelvis: Mildly prominent bile duct. ASSESSMENT AND PLAN: 1. Left-sided chest pain: Today as I talk to her, her discomfort is mainly in the epigastrium and right lower chest. Further management per hospitalist. 2. Mediastinal adenopathy: This may require a PET scan outpatient to look for FDG uptake. If this revealed FDG uptake, we may need to pursue this further. 3. Left-sided subpleural nodules: She gives a history of chest interventions. This may simply be fibrosis related to that. CEA is within normal limits. Continue to further evaluate this outpatient. 4. Right middle lobe lung nodule, 1.5 cm: Treat like pneumonia. Biopsy Per Pulmonary. 5. Depression and anxiety: Follow with psychiatrist. cc: MD Wilberto Blackwell MD MTDD
--- NOTE | 2019-05-02 15:19 | GENERAL SURGERY CONSULTATION ---
DATE: 05/02/2019 TIME: 1:40 p.m. Ms. Mahmood is a 43-year-old female who is lying in bed in a position on her left side complaining of left upper quadrant pain. The pain she says has been going on for a couple of weeks. She denies any trouble with the right upper quadrant. Denies any trouble with eating, even though her appetite is not completely good. She denies any burping, belching or bloated sensation. She is coincidentally noted to have gallstones. Her LFTs are elevated of uncertain etiology. Her past history is pertinent for asthma, hypertension, anxiety, depression. She has had a previous esophageal cyst excised as this cause for her lung surgery. FAMILY HISTORY: None known. SOCIAL HISTORY: She smokes daily a pack a day. She apparently has drank heavily in the past. Drinks socially now. Uses marijuana occasionally. MEDICATIONS: Listed. ALLERGIES: She has allergies to hydrocodone, Ketoralac, and morphine. REVIEW OF SYSTEMS: Negative in the other subsystems besides as noted above. PHYSICAL EXAMINATION: She is afebrile, heart rate 75, respiratory rate 16, blood pressure 147/91. No cervical adenopathy. Bilateral breath sounds.Heart: Regular rate and rhythm. Abdomen: Soft. She is absolutely nontender in the right upper quadrant. No peripheral edema. She is awake and alert. LABORATORY: White count 4100, hemoglobin 12.8. LFTs are noted. ASSESSMENT: Gallstones noted on ultrasound, but she is absolutely asymptomatic in the right upper quadrant. I am not convinced her liver function tests are related to her gallbladder. I think a more complete workup should be finished before considering her for any cholecystectomy. In fact, in view of her negative clinical exam, I am leaning against any cholecystectomy. Will follow along. cc: MD Wilberto Kirk MD
[2019-05-02] MEDS: FLAGYL 500 MG/NS 500 MG/100 ML IVPB IV SCH ×2 (15:53→20:31)
[2019-05-02] MEDS: PROTONIX IV SCH (15:56)
--- NOTE | 2019-05-02 16:03 | PROVIDER PROGRESS NOTE ---
Progress Note Dr. Mccrary Progress Note/Pulmonary and or critical care We appreciated progress of care, Complications, change in diagnosis, and instructions to patient. Subjective: We note the level of consciousness, bed (chair) position, family presence (if any), level of lethargy, feeling of symptoms, and changes from baseline condition/symptom. Patient is crying in bed in a position with right hand across to the left chest area and complaining of severe sharp pain 8/10 around that area. She rep orts Percocet is not helping and she needs IV dilaudid. She appears depressive. She states I dont want to talk about it. Nobody cares. I just want to get out of here to have a cigarette. She is on room air. She still has occasionally dry cough. Friend at the bedside told me that both Dr. Nichols and Dr. Salazar already saw her and they are not going to give her the medicine she wants. Objective: Vital Signs: We reviewed EMR current values for Pulse rate, Blood pressure, Pulse rate, respiratory rate and Pulse oximetry. Also noted other values and trends if present (e.g. I/O, CVP). No fever in last 24 hours, MN 75, RR 16, BP 147/91 and SaO2 96% on room air. Physical Examination: General: Crying in bed in a position with right hand across to the left chest area. No acute cardiac or pulmonary distress noted. HEENT: Normocephalic. Trachea midline. Mucosa pink and moist. Chest: Even and unlabored. Symmetrical excursion. Clear to auscultation bilaterally. CVS: S1 and S2 appreciated. Abdomen: Soft. Epigastric and LUQ tenderness. Non-distended. Normoactive bowel sounds in all 4 quadrants. Extremities: No pedal edema. No cyanosis. No clubbing. Dorsalis pedis 2+ bilaterally. Neuro: A/O x4. Depressive and emotional. Speech fluent. Following commands. Labs and Radiology: Reviewed available labs and radiology values available at time of EMR review. Laboratory Results 05/02/19 05/02/19 07:47 12:32 Sodium 140 Potassium 4.1 Chloride 105 Carbon Dioxide 27 Anion Gap 8 BUN 17 Creatinine 0.7 Estimated GFR/1.73 m2 > 60 BUN/Creatinine Ratio 24 Glucose 89 Calculated Osmolality 280 Calcium 8.8 Total Bilirubin 0.18 L AST 598 H ALT 627 H Alkaline Phosphatase 262 H Troponin T High Sens 10 Total Protein 6.0 L Albumin 3.0 L Globulin 3.0 Albumin/Globulin Ratio 1.0 Assessment: RML irregular density 1 x 1.5 cm Unusual enhancing pleural thickening along LLL 1.2 cm with some nodule enhancement. GIORGIO pleural nodules 0.8 x 0.5 cm Low-density mass in the mediastinum 2.5 x 3 cm Left-sided chest pain under the left breast. LFTs elevation. Tobacco use. Plan: Continue current treatment and supportive care per admitting and other teams on the case. Antibiotic (Azithromycin and Ceftriaxone). Bronchodilators. Outpatient PET scan followup. Smoking cessation education. Input was appreciated from Admitting MD and other teams on the case.
[2019-05-02] MEDS: ZITHROMAX PO SCH (17:11)
[2019-05-02] MEDS: ROCEPHIN 1 GM in NS 50 ML IV SCH (17:11)
[2019-05-02] MEDS: LR 1,000 ML IV SCH (17:57)
[2019-05-02] MEDS: NEURONTIN PO PRN (20:33)
[2019-05-02] MEDS: SEROQUEL PO SCH (20:33)
[2019-05-03] MEDS: FLAGYL 500 MG/NS 500 MG/100 ML IVPB IV SCH ×4 (01:26→20:46)
[2019-05-03] MEDS: LR 1,000 ML IV SCH (04:01)
--- NOTE | 2019-05-03 08:07 | EKG Report ---
Test Performed on : 05/02/2019 1:43:44 PM Test Reason : STAT Blood Pressure : / mmHG Vent. Rate : 070 BPM Atrial Rate : 070 BPM P-R Int : 118 ms QRS Dur : 094 ms QT Int : 404 ms P-R-T Axes : 010 019 016 degrees QTc Int : 436 ms Normal sinus rhythm. Cannot rule out Anterior infarct , age undetermined Abnormal ECG No previous ECGs available Confirmed by Kendrick Mcneill MD ([id number]) on 05/05/2019 12:13:01 PM
[2019-05-03 09:55] LABS: AGAP 10; ALBUMIN 2.9 g/dL (3.5-5.0); ALKALINE PHOSPHATASE 221 U/L (32-104); BUN 17 mg/dL (8-22); CALCIUM 8.8 mg/dL (8.8-10.2); CHLORIDE 102 mmol/L (98-107); COSMO 274; CREATININE 0.7 mg/dL (0.5-0.9); ESTIMATED GFR > 60; GLUCOSE 77 mg/dL (70-104); GOT 150 U/L (10-30); GPT 383 U/L (10-36); POTASSIUM 4.3 mmol/L (3.5-5.1); SODIUM 137 mmol/L (136-145); TCO2 25 mmol/L (25-35); TOTAL PROTEIN 5.7 g/dL (6.3-8.3)
[2019-05-03] MEDS: PERCOCET-5 PO PRN ×2 (10:50→20:46)
[2019-05-03] MEDS: PROZAC PO SCH (10:50)
[2019-05-03] MEDS: KLONOPIN PO SCH ×3 (10:50→20:46)
[2019-05-03] MEDS: BENTYL PO PRN (10:50)
[2019-05-03] MEDS: LIDODERM TOP SCH (10:54)
[2019-05-03 11:39] LABS: HEPATITIS PROFILE ACUTE SEE COMMENTS
[2019-05-03] MEDS: PROTONIX IV SCH (15:10)
[2019-05-03] MEDS ORDERED: FLEXERIL PO PRN (16:02)
--- NOTE | 2019-05-03 17:39 | PROGRESS NOTE ---
DATE: 05/03/2019 INTERVAL HISTORY: No acute events overnight. Ms. mahmood has been eating 50% of her meals. She states she has not had any bowel movement. She states she was able to go to bathroom in the nighttime. As soon as I enter she starts crying. SUBJECTIVE: She states she is still coughing, making up sputum. She states none of the pain medications were working for her and she requested if she could be transferred to [facility]. I explained to her about her medical condition. I explained to her about the abnormal liver function test getting better. I explained to her about repeating liver function test and sending out further test and explained to her that if she would request, we would consider requesting a transfer in future, but I explained to her that there was no need for any surgical intervention to evaluate her pain better and then I encouraged her to do physical activity and I told her that increasing physical activity and probably increasing her gabapentin dose could help with the pain. She agreed to stay back. VITALS: Temperature 99 degrees, pulse 78, respiratory 18, blood pressure 133/71 saturating 98% on room air. PHYSICAL EXAMINATION: Ms Mahmood is not in acute distress.HEENT: Oral cavity is moist. Lungs: Air entry bilaterally equal. No wheeze, rhonchi, or crackles. Cardiovascular: S1, S2 normal. No murmur or gallop. Abdomen: Soft. There is left upper quadrant tenderness. There is also significant superficial tenderness affecting the left lower chest wall as well as right around the scar of previous thoracic surgery on the left infrascapular region and left lower back. Otherwise, there is no hepatosplenomegaly. She does not have any right upper quadrant tenderness. Active bowel sounds. Extremity: No lower extremity edema. Neurologic: She is alert oriented x3. LABS: Suggestive of WBC of 4000, potassium 4.3, BUN 17, creatinine 0.7. She does have AST of 150, ALT of 380, and alkaline phosphatase of 221, which have improved since yesterday microbiology no positive data. IMAGING: No new imaging. ASSESSMENT AND PLAN: 1. Left upper quadrant and left-sided chest wall pain. Based on my encounter, it appears that's her chronic pain. She has been on multiple analgesic medication as well as antianxiety medication including gabapentin, clonazepam, fluoxetine and mirtazapine. She is also on methocarbamol and clonazepam at home. I am suspecting her pain chronic musculoskeletal pain rather than acute. In any case I am going to increase her nighttime gabapentin dose. I offered her lidocaine patch, which she refuses to wear. I encouraged her to do physical activity inside the room and my hope is with time with increasing physical activity her pain would improve. 2. Transaminitis. The ultrasound of the abdomen had gallstones. However, she does not have right upper quadrant tenderness and according to surgical team's recommendation, cholecystitis is not the most likely etiology. At the moment no surgical intervention is planned. The chronicity of her abnormal liver function tests is not clear. I requested the statistical secretary to get records from [facility], outpatient Psychiatric office. However, the patient did not sign the medical records release form. I will follow up antinuclear antibody, antimitochondrial antibody, antismooth muscle antibody to look further into it. I will follow up with liver function test tomorrow. If needed, I may involve Gastroenterology eventually. 3. History of anxiety, depression, posttraumatic stress disorder and chronic regional pain syndrome. Continue home fluoxetine, clonazepam, quetiapine, and higher dose of gabapentin. Records from outpatient provider are pending. 4. Bilateral lung nodule, nodule in the mediastinum displacing esophagus and left-sided pleural thickening. Differential includes atypical pneumonia versus malignancy. She has had multiple chest tube intervention on the left for chylothorax and surgery for esophageal cyst removal in [place] in 2016 with multiple complications. Her current lung findings could be atypical pneumonia on top of chronic lung abnormalities. Oncology team on board. PLAN: Is to treat her community-acquired pneumonia with intravenous antibiotics and repeat CT scan approximately 2 to 3 weeks later as an outpatient.. nutrition services manager have been consulted for home safety issues. The patient used to live in [place] and has recently moved to this region a few days ago. DISPOSITION: Monitor patient inside the hospital as we further workup her liver function tests. If her liver function tests are trending down and her pain has improved, plan is to discharge her with outpatient followup. Appreciate [employer] Supervisor team's recommendations. cc: MD VICTOR HUGO Parks
[2019-05-03] MEDS: ZITHROMAX PO SCH (17:45)
[2019-05-03] MEDS: ROCEPHIN 1 GM in NS 50 ML IV SCH (17:45)
[2019-05-03] MEDS ORDERED: ULTRAM PO PRN (18:16)
--- NOTE | 2019-05-03 18:50 | PROVIDER PROGRESS NOTE ---
Progress Note Dr. Mccrary Progress Note/Pulmonary and or critical care We appreciated progress of care, Complications, change in diagnosis, and instructions to patient. Subjective: We note the level of consciousness, bed (chair) position, family presence (if any), level of lethargy, feeling of symptoms, and changes from baseline condition/symptom. Patient is initially lying in bed in a position. Once I step in the room, she starts crying and complains of severe pain on the right lower chest and ri ght lower back. She states that Percocet does not touch anything. When I touch her right lower back around the shoulder blade area, she grimaces her face and withdraws some, but she states that she refused lidocaine patch because she feels that the pain is inside her body, not outside, which is somehow inconsistent with her response when I simply touch her right lower back. She asks my help to transfer her to [facility] where she had been treated before. I told her I will mention that to Dr. Nichols, who is her hospitalist. She does have some nonproductive cough during my encounter. Objective: Vital Signs: We reviewed EMR current values for Pulse rate, Blood pressure, Pulse rate, respiratory rate and Pulse oximetry. Also noted other values and trends if present (e.g. I/O, CVP). No fever in last 24 hours, IN 78, RR 18, BP 133/71 and SaO2 98% on room air. Physical Examination: General: Lying in bed in a position. No acute cardiac or pulmonary distress noted. HEENT: Normocephalic. Trachea midline. Mucosa pink and moist. Chest: Even and unlabored. Left lower chest tenderness. Symmetrical excursion. Mildly coarse breathing sounds on bilaterally upper lung zones. CVS: S1 and S2 appreciated. Abdomen: Soft. LUQ tenderness and left infrascapular tenderness. Non-distended. Normoactive bowel sounds in all 4 quadrants. Extremities: No pedal edema. No cyanosis. No clubbing. Dorsalis pedis 2+ bilaterally. Neuro: A/O x4. Depressive and emotional. Speech fluent. Following commands. Labs and Radiology: Reviewed available labs and radiology values available at time of EMR review. Laboratory Results 05/01/19 05/03/19 07:13 08:14 Sodium 137 Potassium 4.3 Chloride 102 Carbon Dioxide 25 Anion Gap 10 BUN 17 Creatinine 0.7 Estimated GFR/1.73 m2 > 60 BUN/Creatinine Ratio 24 Glucose 77 Calculated Osmolality 274 Calcium 8.8 Total Bilirubin 0.20 AST 150 H ALT 383 H Alkaline Phosphatase 221 H Total Protein 5.7 L Albumin 2.9 L Globulin 2.8 Albumin/Globulin Ratio 1.0 Hepatitis Panel SEE COMMENTS Assessment: RML irregular density 1 x 1.5 cm Unusual enhancing pleural thickening along LLL 1.2 cm with some nodule enhancement. GIORGIO pleural nodules 0.8 x 0.5 cm Low-density mass in the mediastinum 2.5 x 3 cm Left-sided chest pain under the left breast. LFTs elevation. Plan: Continue current treatment and supportive care per admitting and other teams on the case. Antibiotic (Azithromycin and Ceftriaxone). Bronchodilators. Outpatient PET scan followup. Input was appreciated from Admitting MD and other teams on the case.
--- NOTE | 2019-05-03 20:29 | GENERAL SURGERY PROGRESS NOTE ---
DATE: 05/03/2019 TIME: 5:50 p.m. OBJECTIVE: Ms. Mahmood still is nontender in the right upper quadrant. Her tenderness is in the left upper quadrant. Temperature is 99 degrees. White count today is not recorded, but her chemistry shows a fall in her AST to 150, a fall in her ALT to 383, a fall in her alkaline phosphatase to 221. Her hepatitis panel is negative. PLAN: The plan will be to get a HIDA scan on her tomorrow to look for patency of her cystic duct or not. cc: MD Wilberto Kirk MD
[2019-05-03] MEDS: SEROQUEL PO SCH (20:46)
[2019-05-03] MEDS: NEURONTIN PO SCH (20:46)
[2019-05-03] MEDS: MIRALAX PO SCH (20:47)
[2019-05-04] MEDS: FLAGYL 500 MG/NS 500 MG/100 ML IVPB IV SCH ×4 (01:44→21:12)
[2019-05-04] MEDS: PERCOCET-5 PO PRN ×3 (01:44→21:16)
[2019-05-04 08:22] LABS: AGAP 7; ALB/GLOB RATIO 1.1; ALKALINE PHOSPHATASE 188 U/L (32-104); BUN 13 mg/dL (8-22); CALCIUM 8.9 mg/dL (8.8-10.2); CHLORIDE 101 mmol/L (98-107); COSMO 272; CREATININE 0.6 mg/dL (0.5-0.9); ESTIMATED GFR > 60; GLUCOSE 89 mg/dL (70-104); GOT 64 U/L (10-30); GPT 238 U/L (10-36); POTASSIUM 3.8 mmol/L (3.5-5.1); SODIUM 136 mmol/L (136-145); TCO2 28 mmol/L (25-35); TOTAL BILIRUBIN 0.22 mg/dL (0.20-1.00); TOTAL PROTEIN 5.8 g/dL (6.3-8.3)
[2019-05-04 08:26] LABS: BASO# 0.04 X1000 (0.0-0.2); BASO% 0.7 % (0.0-0.8); EOS% 5.6 % (0.0-10.0); HEMATOCRIT 37.8 % (37.0-47.0); HEMOGLOBIN 12.2 g/dL (12.0-16.0); LYMPH# 1.49 X1000 (1.2-3.4); LYMPH% 27.6 % (20.5-51.1); MCH 32.3 PG (27-31); MCHC 32.3 g/dL (33-37); MONO# 0.52 X1000 (0.11-0.59); MONO% 9.6 % (1.7-9.3); MPV 10.7 FL (7.4-10.4); NEUT# 3.05 X1000 (1.4-6.5); NEUT% 56.5 % (42.2-75.2); PLT 200 X1000 (130-400); RBC 3.78 XMIL (4.2-5.4); RDW 12.6 % (11.5-14.5)
[2019-05-04] MEDS ORDERED: DULCOLAX PR SCH (09:00)
--- NOTE | 2019-05-04 09:20 | Diag Imaging Result Doc PS360 ---
EXAM: HIDA SCAN W/O EJECT. FRACTION HISTORY: determine patency of cystic duct TECHNIQUE: Nuclear medicine HIDA scan with gallbladder ejection fraction COMPARISON: None. FINDINGS: 5.9 mCi Choletec administered. There is normal uptake within the liver. Normal filling of the gallbladder. Normal emptying into the small bowel. IMPRESSION: No abnormality identified. Electronically signed by Soto Perez 05/04/2019 9:17 AM
--- NOTE | 2019-05-04 09:22 | Diag Imaging Result Doc PS360 ---
EXAM: ABDOMEN FLAT/UPRIGHT INDICATION: abdominal pain TECHNIQUE: 2 views COMPARISON: None. FINDINGS: There is retained contrast material in the transverse colon from a prior study. There is increased stool in the ascending colon suggesting possible constipation. No obstructive bowel pattern is identified. There is no evidence of large volume free abdominal gas. There is no evidence of organomegaly. IMPRESSION: Possible mild constipation. Electronically signed by Rich Rivera 05/04/2019 9:20 AM
--- NOTE | 2019-05-04 09:24 | Diag Imaging Result Doc PS360 ---
EXAM: CHEST-2 VIEWS INDICATION: pneumonia/lung nodule/mediastinal mass TECHNIQUE: 2 views COMPARISON: 04/29/2019 FINDINGS: There has been development of minimal subsegmental atelectasis at the left costophrenic angle. The lungs are grossly clear, otherwise. There is no discrete pleural fluid collection or pneumothorax. The cardiomediastinal silhouette and central vasculature are grossly unremarkable. IMPRESSION: Minimal left basilar subsegmental atelectasis. No definite acute chest pathology by plain radiograph, otherwise. Electronically signed by Rich Rivera 05/04/2019 9:21 AM
[2019-05-04] MEDS: LR 1,000 ML IV SCH ×2 (09:38→10:07)
[2019-05-04] MEDS: KLONOPIN PO SCH ×3 (09:52→21:12)
[2019-05-04] MEDS: PROZAC PO SCH (09:52)
[2019-05-04] MEDS: LIDODERM TOP SCH (09:53)
[2019-05-04] MEDS: MIRALAX PO SCH ×2 (09:57→21:13)
[2019-05-04] MEDS: COLACE PO SCH ×3 (09:57→21:13)
[2019-05-04 11:13] LABS: C REACTIVE PROT QUANT 2.08 mg/L (0.00-5.00)
[2019-05-04] MEDS: NEURONTIN PO PRN (14:44)
[2019-05-04] MEDS: BENTYL PO PRN (14:44)
[2019-05-04] MEDS: PROTONIX IV SCH (14:46)
--- NOTE | 2019-05-04 15:30 | GENERAL SURGERY PROGRESS NOTE ---
DATE: 05/04/2019 Ms. Mahmood's exam is about the same. Her LFTs show improvement. Her HIDA scan showed patency of the cystic duct. I do not think cholecystectomy is indicated. I discussed that with her. cc: MD Wilberto Kirk MD
--- NOTE | 2019-05-04 15:32 | GASTROENTEROLOGY CONSULTATION ---
DATE: 05/04/2019 REASON FOR CONSULTATION: Abdominal pain. HISTORY OF PRESENT ILLNESS: Ms. Mahmood is a 43-year-old female who has been in the hospital since 04/30/2019. She had come with the complaints of left-sided pain under the breast with nausea, shortness of breath, and lightheadedness. The patient today complained that she has got chest pain and when she coughs it hurts in the epigastric area. She mentioned that she is having nausea but she has denied any vomiting. The patient's abdominal x-ray yesterday showed that she had possible mild constipation. HIDA scan today showed no abnormality identified. The patient's abdominal ultrasound on 05/01/2019 showed that her gallbladder lumen was full of stones and mild gallbladder wall thickening but no pericholecystic fluid. Common bile duct diameter near the upper limit of normal. The patient's abdomen and pelvis CT had shown mild prominent common bile duct. Her chest and thorax CT has shown borderline ectasia of the ascending aorta at 3.5 cm. No evidence of aortic dissection. A 1 x 1.5 cm density with somewhat irregular margins at the posterior right middle lobe adjacent to the major fissure. Considerations include malignancy and atypical infection/inflammatory process. Unusual enhancing pleural thickening at the posterior left lower lobe; small enhancing pleural nodule at anterolateral left upper lobe; malignant pleural thickening cannot be excluded. A 2.5 x 3 cm low density mass identified at the mediastinum posterior to the distal trachea. This displaces the esophagus to the right. PAST MEDICAL HISTORY: Asthma, hypertension, anxiety, and depression. PAST SURGICAL HISTORY: Thoracic surgery and neck surgery. History of esophageal cyst SOCIAL HISTORY: Smokes two and a half packs of cigarettes per day. Consumes alcohol occasionally and consumes marijuana occasionally. The patient is single. She lives alone in an apartment. She has two kids. She did mention to me that she actually is from [place] and has been here for six months. She ran away from [place] because she thought somebody was trying to hurt her. She does have history of anxiety and depression. FAMILY HISTORY: Not significant for GI malignancies. HOME MEDICATIONS: Prozac 40 mg, two tablets daily; clonazepam 2 mg one tablet three times a day; Ventolin one puff as directed; Seroquel one tablet p.o. at bedtime; Albuterol 2.5 mg inhalation every four hours as needed; Seroquel 25 mg p.o. daily; Flexeril 10 mg p.o. daily; Neurontin 300 mg p.o. three times a day, Robaxin 750 mg p.o. three times a day. ALLERGIES: Hydrocodone, Ketoralac, and morphine. REVIEW OF SYSTEMS: As per HPI. Otherwise, 12 point review of system is negative. PHYSICAL EXAMINATION: Vital Signs: Temperature 97.7 degrees, pulse of 64, respirations 17, blood pressure 126/80, oxygen saturation 97% on room air. The patient's weight is 130 pounds, BMI is21.6 kg/m2. General: She is alert and oriented x2, answering questions reluctantly and in no acute distress. HEENT: Pale conjunctivae. No icterus. PERRL. Neck: Supple. Lungs: Clear to auscultation. Cardiovascular: Regular rate and rhythm. Abdomen: Soft. Tender in the epigastric area. Active bowel sounds heard in all four quadrants. Extremities: No clubbing, no cyanosis, no edema. Pedal pulses 2+ present bilaterally. Neurologic: She is alert and oriented x2. Nonfocal. Cranial nerves II-XII grossly intact. LABORATORY DATA: WBCs are 5.40, RBC 3.78, hemoglobin 12.2, hematocrit is 37.8, platelet count is 200,000. Sodium 136, potassium 3.8, chloride 101, carbon dioxide 28, anion gap is 7, BUN 13, creatinine 0.6, glucose is 89, calcium is 8.9. Total bilirubin is 0.22, AST 64, ALT is 288, alkaline phosphatase is 188. IMPRESSION - Abdominal pain - Gallstones - Abnormal LFTs - Constipation - Tobacco abuse - Marijuana abuse - Mediastinal adenopathy - Pulmonary nodules PLAN: Ms. Mahmood is a 43-year-old female with history of hypertension, anxiety, depression, and asthma. GI has been consulted for abdominal pain. The patient's HIDA scan today did not show any abnormalities. Abdominal x-ray has shown possible mild constipation. The patient is currently on antibiotics, Rocephin and Zithromax. She is receiving IV fluids, lactated ringers at 70 mL per hour. She is receiving Protonix 40 mg IV daily. She is on a bowel regimen with MiraLAX 17 grams p.o. twice a day with Colace 100 mg p.o. twice a day and Dulcolax 10 mg p.o. as needed. The patient has denied having any bowel movements today. We will continue to monitor her and follow the plan of care per PCP. This plan was discussed with Dr. Marmolejo. Thank you for your consult. Please call us for any further questions or concerns. Dictated by FATUMA Vargas for Goyo Marmolejo MD cc: Wilberto Nichols MD Physician Attestation I have seen and examined the patient. I have discussed and reviewed the note by Talita BURRIS and agree with findings and plan as documented. In brief, Ms. Mahmood is a 43yo woman who presented with abdominal pain found to have abnormal LFTs and gallstones. No biliary dilation. HIDA scan was normal. LFTs downtrending. Suspect she may have passed a stone. Continue supportive care. She may need elective CCY. MTDD
[2019-05-04] MEDS: DILAUDID IV PRN ×2 (16:38→23:57)
[2019-05-04] MEDS: ROCEPHIN 1 GM in NS 50 ML IV SCH ×2 (16:53→17:05)
[2019-05-04] MEDS: ZITHROMAX PO SCH ×2 (16:53→17:06)
--- NOTE | 2019-05-04 18:59 | PROVIDER PROGRESS NOTE ---
Progress Note Dr. Mccrary Progress Note/Pulmonary and or critical care We appreciated progress of care, Complications, change in diagnosis, and instructions to patient. Subjective: We note the level of consciousness, bed (chair) position, family presence (if any), level of lethargy, feeling of symptoms, and changes from baseline condition/symptom. Patient is lying in bed talking on phone with no acute distress noted. She asks is there any way you can transfer me to [facility]?. When I ask her to deep breath during assessment, she starts coughing and guarding left lower chest with grimacing face. Objective: Vital Signs: We reviewed EMR current values for Pulse rate, Blood pressure, Pulse rate, respiratory rate and Pulse oximetry. Also noted other values and trends if present (e.g. I/O, CVP). T 97.7, MA 64, RR 17, BP 126/80 and SaO2 97% on room air. Physical Examination: General: Lying in bed talking on phone with No acute cardiac or pulmonary distress noted. HEENT: Normocephalic. Trachea midline. Mucosa pink and moist. Chest: Even and unlabored. Left lower chest tenderness. Symmetrical excursion. Mildly coarse breathing sounds on bilaterally upper lung zones. CVS: S1 and S2 appreciated. Abdomen: Soft. LUQ tenderness and left infrascapular tenderness. Non-distended. Normoactive bowel sounds in all 4 quadrants. Extremities: No pedal edema. No cyanosis. No clubbing. Dorsalis pedis 2+ bilaterally. Neuro: A/O x4. Depressive and emotional. Speech fluent. Following commands. Labs and Radiology: Reviewed available labs and radiology values available at time of EMR review. Laboratory Results 05/01/19 05/03/19 05/04/19 07:13 16:40 07:10 WBC 5.40 RBC 3.78 L Hgb 12.2 Hct 37.8 MCV 100.0 H MCH 32.3 H MCHC 32.3 L RDW Std Deviation 12.6 Plt Count 200 MPV 10.7 H Immature Gran % (Auto) 0.0 Neut % (Auto) 56.5 Lymph % (Auto) 27.6 Campbell % (Auto) 9.6 H Eos % (Auto) 5.6 Baso % (Auto) 0.7 Immature Gran # (Auto) 0.00 Neut # (Auto) 3.05 Lymph # (Auto) 1.49 Campbell # (Auto) 0.52 Eos # (Auto) 0.30 Baso # (Auto) 0.04 ESR Sodium Potassium Chloride Carbon Dioxide Anion Gap BUN Creatinine Estimated GFR/1.73 m2 BUN/Creatinine Ratio Glucose Calculated Osmolality Calcium Total Bilirubin AST ALT Alkaline Phosphatase C-Reactive Prot, Quant Total Protein Albumin Globulin Albumin/Globulin Ratio Lipase Procalcitonin SEE COMMENTS ALYSSA Screen SEE COMMENTS 05/04/19 05/04/19 05/04/19 07:10 07:10 07:10 WBC RBC Hgb Hct MCV MCH MCHC RDW Std Deviation Plt Count MPV Immature Gran % (Auto) Neut % (Auto) Lymph % (Auto) Campbell % (Auto) Eos % (Auto) Baso % (Auto) Immature Gran # (Auto) Neut # (Auto) Lymph # (Auto) Campbell # (Auto) Eos # (Auto) Baso # (Auto) ESR 26 H Sodium 136 Potassium 3.8 Chloride 101 Carbon Dioxide 28 Anion Gap 7 BUN 13 Creatinine 0.6 Estimated GFR/1.73 m2 > 60 BUN/Creatinine Ratio 22 Glucose 89 Calculated Osmolality 272 Calcium 8.9 Total Bilirubin 0.22 AST 64 H ALT 238 H Alkaline Phosphatase 188 H C-Reactive Prot, Quant 2.08 Total Protein 5.8 L Albumin 3.0 L Globulin 2.8 Albumin/Globulin Ratio 1.1 Lipase 37 Procalcitonin ALYSSA Screen Assessment: RML irregular density 1 x 1.5 cm Unusual enhancing pleural thickening along LLL 1.2 cm with some nodule enhancement. GIORGIO pleural nodules 0.8 x 0.5 cm Low-density mass in the mediastinum 2.5 x 3 cm Left-sided chest pain under the left breast. HIDA scan planning today per Dr. Johnson to rule out cholecystitis. LFTs elevation. Improving. Plan: Continue current treatment and supportive care per admitting and other teams on the case. Antibiotic (Azithromycin and Ceftriaxone). Bronchodilators. Outpatient PET scan followup. Input was appreciated from Admitting MD and other teams on the case.
[2019-05-04] MEDS: NEURONTIN PO SCH (21:12)
[2019-05-04] MEDS: SEROQUEL PO SCH (21:13)
[2019-05-04] MEDS ORDERED: LOVENOX SUBQ SCH (22:00)
--- NOTE | 2019-05-04 22:33 | PROGRESS NOTE ---
DATE: 05/04/2019 SUBJECTIVE: The patient is resting comfortably. She complains of persistent pain under the left breast that wraps around to the right side. She also reports that she has been feeling suicidal. She stated that she wants to go home to be with her mother. Apparently the patient's mother several years ago. The patient stated that she did not want to live anymore. OBJECTIVE: Vital signs: Temperature 97.9 degrees, blood pressure 127/80, heart rate 74, respirations 14, O2 saturation 97% on 2 L nasal cannula. General: This is a middle-aged female with a flat affect, lying in bed in no acute distress.Heart: S1, S2 normal. Regular rate and rhythm. Lungs: Equal air entry bilaterally. No wheezing. No rales. Abdomen: Positive bowel sounds. Soft, nontender, nondistended. Extremities: No edema, no cyanosis. No calf tenderness. Psychiatric: The patient has flat affect. She is alert and oriented x4. She complains of severe depression. Neurologic: No focal neurologic deficits noted. LABORATORY DATA: White blood cell count 5.4, hemoglobin 12, hematocrit 37, platelets 200,000. Sodium 136, potassium 3.8, chloride 101, CO2 is 28, BUN 13, creatinine 0.6, glucose 89, AST 64, ALT 238, alkaline phosphatase 188. DIAGNOSTIC DATA: HIDA scan was normal. Abdominal x-ray shows constipation. Chest x-ray shows left basilar atelectasis. ASSESSMENT AND PLAN: 1. Left chest wall pain. The etiology of the patient's pain is unknown. Would likely recommend referral to a shipyard painter for further assessment and treatment. The patient states that the Percocet at the current dosage is not helping her pain. She is also on gabapentin and Lidoderm patch. 2. Mediastinal adenopathy/mass. The patient will follow up with Dr. Mccrary to be scheduled for a PET scan for further assessment. 3. Right middle lobe density. Again, this will be assessed with a PET scan as outpatient to be scheduled by Dr. Mccrary. At this time the patient is currently being treated for pneumonia. 4. Suspected pneumonia. The procalcitonin was noted to be negative. The patient does have a productive cough. We will continue on the current regimen for pneumonia. We will likely transition to a p.o. antibiotic on discharge. 5. Transaminitis. Slowly improving. The HIDA scan was noted to be negative. 6. Posttraumatic stress disorder. Aware. 7. Chronic regional pain syndrome. The patient is on high-dose gabapentin. She is also on a Lidoderm patch. The patient likely needs to be referred to a shipyard painter for further management of her pain. 8. Suicidal ideation with major depression. The patient has stated that she has been having suicidal thoughts for quite some time. She reports that she has been on Prozac for several years, but feels that it is no longer working to control her depression. We will place the patient on one-to-one and consult the psychiatrist for further recommendations. 9. Anxiety disorder. Continue on Klonopin 3 times a day. 10. Deep vein thrombosis prophylaxis. We will start the patient on Lovenox. cc: MD Wilberto Zamudio MD MTDD
[2019-05-05] MEDS: DULCOLAX PR SCH ×2 (00:59→08:41)
[2019-05-05] MEDS: FLAGYL 500 MG/NS 500 MG/100 ML IVPB IV SCH ×3 (02:28→14:34)
[2019-05-05] MEDS: DILAUDID IV PRN ×4 (06:23→17:35)
[2019-05-05 08:13] LABS: HEMATOCRIT 37.2 % (37.0-47.0); HEMOGLOBIN 11.8 g/dL (12.0-16.0); MCH 32.1 PG (27-31); MCHC 31.7 g/dL (33-37); MCV 101.1 FL (81-99); MPV 10.5 FL (7.4-10.4); RBC 3.68 XMIL (4.2-5.4); RDW 12.9 % (11.5-14.5); WBC 4.71 X1000 (4.8-10.8)
[2019-05-05] MEDS: LIDODERM TOP SCH (08:39)
[2019-05-05] MEDS: PROZAC PO SCH (08:40)
[2019-05-05] MEDS: MIRALAX PO SCH (08:41)
[2019-05-05] MEDS: COLACE PO SCH (08:41)
[2019-05-05 08:44] LABS: AGAP 7; ALB/GLOB RATIO 1.1; ALBUMIN 3.1 g/dL (3.5-5.0); ALKALINE PHOSPHATASE 166 U/L (32-104); BUN 17 mg/dL (8-22); CALCIUM 8.8 mg/dL (8.8-10.2); CHLORIDE 100 mmol/L (98-107); COSMO 275; CREATININE 0.7 mg/dL (0.5-0.9); ESTIMATED GFR > 60; GLUCOSE 92 mg/dL (70-104); GOT 38 U/L (10-30); GPT 174 U/L (10-36); POTASSIUM 3.9 mmol/L (3.5-5.1); SODIUM 137 mmol/L (136-145); TCO2 30 mmol/L (25-35); TOTAL BILIRUBIN 0.18 mg/dL (0.20-1.00)
[2019-05-05] MEDS: KLONOPIN PO SCH ×2 (08:47→14:33)
[2019-05-05] MEDS: PERCOCET-5 PO PRN (08:47)
[2019-05-05] MEDS ORDERED: CITRATE OF MAGNESIA PO ONE (09:00)
--- NOTE | 2019-05-05 13:11 | GASTROENTEROLOGY PROGRESS NOTE ---
DATE: 05/05/2019 SUBJECTIVE: Ms. Mahmood is a 42-year-old female. She was sitting in bed. The patient was complaining that she does not have a place to stay and she does not want to go without getting treated. She has denied having any nausea or vomiting, and her abdominal pain is better, but she is complaining about her back pain. The patient has denied having any bowel movements today. OBJECTIVE: Vital Signs: Temperature 97.8, pulse 78, respirations 19, blood pressure 107/57, oxygen saturation 95% on room air. The patient's weight is 130 pounds. BMI is 21.6 kg/m2. General: She is alert and oriented x3, and in no acute distress. HEENT: Pale conjunctivae. No icterus. PERRL. Neck: Supple. Lungs: Clear to auscultation. Cardiovascular: Regular rate and rhythm. Abdomen: Soft, mildly tender, nondistended. Active bowel sounds heard in all 4 quadrants. Extremities: No clubbing, no cyanosis, no edema. Pedal pulse is 2+ present bilaterally. Neurologic: Alert and oriented x3. LABORATORY DATA: WBCs 4.71, RBCs 3.68, hemoglobin 11.8, hematocrit is 37.2, platelet count is 195,000. Sodium 137, potassium 3.9, chloride 100, carbon dioxide 30, anion gap 7, BUN 17, creatinine is 0.7, glucose 92, calcium 8.8. Total bilirubin 0.18, AST 38, ALT 174, alkaline phosphatase is 166, albumin is 3.1. Her ALYSSA reflex screen was negative. Hepatitis profile was nonreactive. IMPRESSION AND PLAN: Abdominal pain Nausea and vomiting Elevated LFT's Gallstones Hypertension Tobacco abuse Marijuana abuse Alcohol abuse PLAN: Ms. Mahmood is a 43-year-old female who has a history of hypertension, anxiety, depression. Gastroenterology is following her for her abdominal pain. US showed gallstones. The patient's HIDA scan did not show any abnormalities. Abdominal x-ray had shown possible mild constipation. Abdominal pain resolved. Patient has discharge orders to go home today. This plan was discussed with Dr. Marmolejo. Please call us for any further questions. Dictated by FATUMA Vargas for Goyo Marmolejo MD cc: Wilberto Nichols MD Physician Attestation I have seen and examined the patient. I have discussed and reviewed the note by Talita BURRIS and agree with findings and plan as documented. TAMD
--- NOTE | 2019-05-05 14:06 | PROVIDER PROGRESS NOTE ---
Progress Note Dr. Mccrary Progress Note/Pulmonary and or critical care We appreciated progress of care, Complications, change in diagnosis, and instructions to patient. Subjective: We note the level of consciousness, bed (chair) position, family presence (if any), level of lethargy, feeling of symptoms, and changes from baseline condition/symptom. Patient is sitting in bed trying to have her lunch. There is no acute distress noted. She appears lethargic. She states she is feeling better. She apparently received IV dilaudid less than 2 hours ago. She has been refused antibiotics including Azithromycin and Ceftriaxone since yesterday. She is on one-to-one. Objective: Vital Signs: We reviewed EMR current values for Pulse rate, Blood pressure, Pulse rate, respiratory rate and Pulse oximetry. Also noted other values and trends if present (e.g. I/O, CVP). T 97.8, AL 78, RR 19, BP 107/57 and SaO2 95% on room air. Physical Examination General: Sitting in bed trying to have lunch. Appears lethargic. On one-to-one. HEENT: Normocephalic. Trachea midline. Mucosa pink and moist. Chest: Even and unlabored. Left lower chest tenderness. Symmetrical excursion. Clear to auscultation bilaterally. CVS: S1 and S2 appreciated. Abdomen: Soft. Nontender. Non-distended. Normoactive bowel sounds in all 4 quadrants. Extremities: No pedal edema. No cyanosis. No clubbing. Dorsalis pedis 2+ bilaterally. Neuro: Lethargic. Flat facial expression. Labs and Radiology: Reviewed available labs and radiology values available at time of EMR review. Laboratory Results 05/01/19 05/05/19 05/05/19 07:13 07:45 07:45 WBC 4.71 L RBC 3.68 L Hgb 11.8 L Hct 37.2 MCV 101.1 H MCH 32.1 H MCHC 31.7 L RDW Std Deviation 12.9 Plt Count 195 MPV 10.5 H Sodium 137 Potassium 3.9 Chloride 100 Carbon Dioxide 30 Anion Gap 7 BUN 17 Creatinine 0.7 Estimated GFR/1.73 m2 > 60 BUN/Creatinine Ratio 24 Glucose 92 Calculated Osmolality 275 Calcium 8.8 Total Bilirubin 0.18 L AST 38 H ALT 174 H Alkaline Phosphatase 166 H Total Protein 6.0 L Albumin 3.1 L Globulin 2.9 Albumin/Globulin Ratio 1.1 Procalcitonin SEE COMMENTS Assessment: RML irregular density 1 x 1.5 cm Unusual enhancing pleural thickening along LLL 1.2 cm with some nodule enha ncement. GIORGIO pleural nodules 0.8 x 0.5 cm Low-density mass in the mediastinum 2.5 x 3 cm Left-sided chest pain under the left breast. HIDA scan on 05/04/19 ruled out cholecystitis. LFTs elevation. Improving. Plan: Continue current treatment and supportive care per admitting and other teams on the case. Antibiotic (Azithromycin and Ceftriaxone). Bronchodilators. Outpatient PET scan followup. Input was appreciated from Admitting MD and other teams on the case.
[2019-05-05] MEDS: PROTONIX IV SCH (14:23)
[2019-05-05 16:12] VITALS: BP 118/75
--- NOTE | 2019-05-16 07:30 | DISCHARGE SUMMARY ---
ADMISSION DATE: 04/30/2019 DISCHARGE DATE: 05/05/2019 FINAL DISCHARGE DIAGNOSES: 1. Left sided chest pain, atypical. 2. Right middle lobe lung density. 3. Low-density mass in the mediastinum. 4. Pneumonia. 5. Transaminitis. 6. Posttraumatic stress disorder. 7. Chronic regional pain syndrome. 8. Anxiety disorder. CONSULTATIONS: 1. Pulmonary consultation with Dr. Mccrary. 2. Oncology consultation with Dr. Salazar. 3. General Surgery consultation with Dr. Johnson. 4. GI consultation with Dr. Marmolejo. IMAGIN. Portable chest x-ray performed on 04/29/2019, which revealed mildly shallow inspiration. 2. CTA of the chest and thorax performed on 04/29/2019, which revealed a density in the right middle lobe of the lung, low density at the mediastinum posterior to the distal trachea. 3. Abdominal ultrasound which revealed a gallbladder with stones and mild gallbladder wall thickening, but no pericholecystic fluid. 4. HIDA scan performed on 05/04/2019, which revealed normal filling of the gallbladder. HOSPITAL COURSE: Ms. Mahmood is a 43-year-old female with a history of multiple medical problems, who presented to the ER with a chief complaint of left-sided chest pain. The patient was admitted to the Hospitalist Service. On admission, a CTA of the chest and thorax was done that revealed a density in the right middle lobe of the lung, as well as a density in the mediastinum distal to the trachea. Also, an abdominal ultrasound was done that revealed cholelithiasis with mild gallbladder wall thickening. In light of these findings, Oncology and General Surgery were consulted. Also, Pulmonary was consulted given the lung nodules. The patient was treated with IV fluids, antiemetics, and pain medication. It was recommended by the oncologist that the patient follow up as outpatient to undergo a PET scan to further assess the density seen on the CT. The patient was followed by the general surgeon, and he thought that the patient did not exhibit the signs and symptoms of cholecystitis. A HIDA scan was done that was noted to be normal. Also, the patient was not having any pain in the region of the gallbladder, and the patient was able to tolerate her meals without any difficulty. GI was also consulted for the patient's pain, but no obvious etiology was found. The patient was treated for pneumonia during her hospitalization, and improved clinically. The patient continued to improve clinically, and she was advised to follow up with all of the subspecialists that saw her during her hospital stay to include the power sewing machine operator, oncologist, GI specialist, and general surgeon. The patient was cleared for discharge home on 05/05/2019. DISCHARGE MEDICATIONS: 1. Colace 100 mg oral twice a day. 2. Lidoderm patch topical daily. 3. Percocet 7.5/325 one tablet oral every 6 hours p.r.n. pain. 4. Prozac 2 tablets oral daily. 5. Clonazepam 2 mg oral 3 times a day. 6. Remeron 1 tablet oral at bedtime. 7. Seroquel 200 mg oral at bedtime. 8. Albuterol nebulizer inhaled every 4 hours p.r.n. for shortness of breath. 9. Flexeril 10 mg oral daily at bedtime. 10. Neurontin 300 mg oral 3 times a day. DISCHARGE DIET: Regular diet. ACTIVITY: As tolerated. FOLLOWUP INSTRUCTIONS: The patient has been advised to follow up with Dr. Salazar in 2 weeks. The patient will also need to follow up with Dr. Marmolejo in 2 weeks. The patient will need to follow up with Dr. Mccrary in 1 week to have the outpatient PET scan done. cc: MD Wilberto Zamudio MD MTDD
== END 2019-05-05 18:02 | disposition home or self-care (01) | DRG 193 ==
LOC: P.ED 21:19 → SUATTDRO 04-30 07:08 → EDIPHOLD 04-30 07:08 → 3N 04-30 22:03
PROVIDERS: ADMIT Internal Medicine; ATTEND Internal Medicine